=== PATIENT | male | born 1975 | race Caucasian/White ===

== ENCOUNTER 2024-09-07 22:25 | Inpatient (IN) | payer OTHER ==
[2024-09-07] MEDS ORDERED: ACETAMINOPHEN INJECTION 100 ML ONE (23:49)
[2024-09-07] MEDS ORDERED: FAMOTIDINE 20 MG/50 ML IVPB 20 MG/50 ML MG IVPB ONE (23:50)
[2024-09-07] MEDS ORDERED: ONDANSETRON 4 MG/2 ML VIAL ONE (23:50)
[2024-09-08] MEDS: ONDANSETRON 4 MG/2 ML VIAL IVPUSH ONE (00:11)
[2024-09-08] MEDS: ACETAMINOPHEN 1000 MG/100 ML BAG IVPB ONE (00:11)
[2024-09-08] MEDS: FAMOTIDINE 20 MG/50 ML IVPB 20 MG/50 ML MG IVPB ONE (00:11)
[2024-09-08 00:19] LABS: BASO % 0.4 % (0-2.0); EOS % 0.1 % (0-4.5); HEMATOCRIT 44.2 % (35.4-49); HEMOGLOBIN 14.8 GM/dL (11.7-16.9); LYMPH % 10.9 % (8-40); MCHC 33.6 g/dl (32.0-35.9); MEAN CELL VOLUME 89.4 fl (80-96); MEAN PLT VOLUME 7.8 fl (7.5-11.1); MONO % 10.7 % (3.8-10.2); NEUT % 77.9 % (42.8-82.8); PLATELET COUNT 217 10^3/uL (134-434); RBC 4.95 M/mm3 (4.00-5.60); RDW 13.1 % (11.9-15.9); WHITE BLOOD COUNT 6.2 K/mm3 (4.0-10.0)
[2024-09-08 00:55] LABS: POTASSIUM 4.5 mmol/L (3.5-5.1)
[2024-09-08 00:57] LABS: CALCIUM 8.8 mg/dL (8.5-10.1)
[2024-09-08 00:58] LABS: ALBUMIN 3.5 g/dl (3.4-5.0); BLOOD UREA NITROGEN 11.9 mg/dL (7-18)
[2024-09-08 01:01] LABS: CREATININE 0.9 mg/dL (0.55-1.3)
[2024-09-08 01:02] LABS: BILIRUBIN,TOTAL 1.2 mg/dL (0.2-1); TOT PROT 6.7 g/dl (6.4-8.2)
[2024-09-08] MEDS ORDERED: morphine SULFATE 4 MG/ML VIAL ONE (02:54)
[2024-09-08] MEDS ORDERED: PIPERACILLIN/TAZOB 4.5 GM 4.5 GM/100 ML BAG IVPB ONE (02:55)
[2024-09-08] MEDS: morphine CARPU-JECT 4 MG/1 ML DISP.SYRIN IVPUSH ONE (03:05)
[2024-09-08] MEDS: PIPERACILLIN/TAZOB 4.5 GM 4.5 GM in DEXTROSE 5%-WATER 100 ML IVPB ONE (03:05)
[2024-09-08] MEDS: SODIUM CHLORIDE 0.9% 500 ML INFUS.BAG IV ONE ×2 (03:05→03:20)
[2024-09-08] MEDS: PIPERACILLIN/TAZOB 3.375 GM 3.375 GM in DEXTROSE 5%-WATER - 50 ML IVPB SCH ×4 (03:39→17:41)
[2024-09-08] MEDS ORDERED: PANTOPRAZOLE SODIUM 40 MG VIAL ONE (03:58)
[2024-09-08 04:00] LABS: INR 1.14 (0.83-1.09); PROTHROMBIN TIME (PATIENT) 12.8 SEC (9.7-13.0)
[2024-09-08] MEDS: LACTATED RINGERS SOLUTION 1,000 ML/1,000 ML INFUS.BAG IV STA (04:00)
[2024-09-08] MEDS: PANTOPRAZOLE SODIUM 40 MG VIAL IVPUSH ONE (04:00)
[2024-09-08 04:02] LABS: ACTIVATED PTT 25.8 SECONDS (25.2-36.5)
[2024-09-08] MEDS ORDERED: LACTATED RINGERS SOLUTION 1,000 ML/1,000 ML INFUS.BAG IV STA (04:15)
[2024-09-08] MEDS ORDERED: SUCCINYLCHOLINE CHLORIDE 200 MG/10 ML SYRINGE ONE (04:32)
[2024-09-08] MEDS ORDERED: PROPOFOL 20 ML ONE ×2 (04:32→05:20)
[2024-09-08] MEDS ORDERED: HYDROmorphone HCl 2 MG/ML VIAL ONE (04:33)
[2024-09-08 04:39] LABS: EPI CELLS 2 /uL (0-25.1); HYALINE CASTS 0 /uL (0-3.1); URINE APPEARANCE CLEAR; URINE BACTERIA 1 /uL (0-1359); URINE BILIRUBIN NEGATIVE (NEGATIVE); URINE COLOR YELLOW; URINE GLUCOSE (UA) NEGATIVE (NEGATIVE); URINE KETONE NEGATIVE (NEGATIVE); URINE LEUK ESTERASE NEGATIVE (NEGATIVE); URINE NITRITE NEGATIVE (NEGATIVE); URINE PROTEIN NEGATIVE (NEGATIVE); URINE RBC 12 /uL (0-23.9); URINE WBC 3 /uL (0-25.8)
[2024-09-08] MEDS ORDERED: INDOCYANINE GREEN 25 MG/10 ML VIAL IVPUSH ONE (05:05)
[2024-09-08] MEDS ORDERED: CEFOXITIN SODIUM/DEXTROSE,ISO 2 GM/50 ML BAG ONE (05:05)
[2024-09-08] MEDS ORDERED: BUPIVACAINE HCL/PF 0.25% (2.5MG/ML) 10 ML VIAL ONE (05:05)
[2024-09-08] MEDS ORDERED: HEPARIN NA (PORCINE) 5,000 UNITS/ML 1ML VIAL ONE (05:05)
[2024-09-08 05:08] LABS: COCAINE, UR NEGATIVE (NEGATIVE); URINE BARBITURATES NEGATIVE (NEGATIVE); URINE BENZODIAZEPINES NEGATIVE (NEGATIVE)
[2024-09-08 05:09] LABS: METHADONE, UR NEGATIVE (NEGATIVE); PHENCYCLIDINE,URINE NEGATIVE (NEGATIVE); URINE AMPHETAMINES NEGATIVE (NEGATIVE)
[2024-09-08] MEDS ORDERED: ROCURONIUM BROMIDE 50 MG/5 ML SYRINGE ONE (05:21)
[2024-09-08 05:24] LABS: OPIATES, URI POSITIVE (NEGATIVE)
[2024-09-08] MEDS ORDERED: DEXAMETHASONE SOD PHOSPHATE 4 MG/1 ML VIAL ONE (05:25)
[2024-09-08] MEDS ORDERED: ONDANSETRON 4 MG/2 ML VIAL ONE ×2 (05:25→06:30)
[2024-09-08] MEDS ORDERED: SEVOFLURANE 250 ML BTL ONE (05:30)
[2024-09-08] MEDS: BUPIVACAINE HCL/PF 0.25% (2.5MG/ML) 10 ML VIAL IJ ONE (05:33)
[2024-09-08] MEDS ORDERED: ACETAMINOPHEN INJECTION 100 ML ONE (06:15)
[2024-09-08] MEDS ORDERED: KETOROLAC TROMETHAMINE 30 MG/1 ML VIAL ONE (06:20)
[2024-09-08] MEDS ORDERED: NEOSTIGMINE METHYLSULFATE 0.5 MG/1 ML - 10 ML MDV ONE (06:30)
[2024-09-08] MEDS ORDERED: GLYCOPYRROLATE 0.2 MG/1 ML VIAL ONE (06:30)
[2024-09-08] MEDS ORDERED: ONDANSETRON 4 MG/2 ML VIAL IVPUSH PRN (07:24)
[2024-09-08] MEDS ORDERED: LACTATED RINGERS SOLUTION 1,000 ML IV SCH (07:30)
[2024-09-08] MEDS: LACTATED RINGERS SOLUTION 1,000 ML/1,000 ML INFUS.BAG IV SCH (08:00)
[2024-09-08 09:33] LABS: POTASSIUM 4.6 mmol/L (3.5-5.1)
[2024-09-08 09:34] LABS: HEMATOCRIT 38.2 % (35.4-49); HEMOGLOBIN 12.8 GM/dL (11.7-16.9); MCH 30.1 pg (25.7-33.7); MCHC 33.4 g/dl (32.0-35.9); MEAN CELL VOLUME 90.2 fl (80-96); MEAN PLT VOLUME 7.8 fl (7.5-11.1); PLATELET COUNT 175 10^3/uL (134-434); RBC 4.24 M/mm3 (4.00-5.60); RDW 13.2 % (11.9-15.9); WHITE BLOOD COUNT 5.6 K/mm3 (4.0-10.0)
[2024-09-08 09:35] LABS: CALCIUM 7.5 mg/dL (8.5-10.1); MAGNESIUM 1.1 mg/dL (1.8-2.4)
[2024-09-08 09:38] LABS: CREATININE 0.6 mg/dL (0.55-1.3)
[2024-09-08 09:39] LABS: PHOSPHOROUS 3.1 mg/dL (2.5-4.9)
[2024-09-08 09:40] LABS: BILIRUBIN,TOTAL 1.3 mg/dL (0.2-1)
[2024-09-08] MEDS: PANTOPRAZOLE SODIUM 40 MG VIAL IVPUSH SCH (11:18)
[2024-09-08] MEDS: MAGNESIUM SULFATE IN WATER 2 GM/50 ML IVPB IVPB ONE (11:58)
[2024-09-08 12:41] LABS: TOT PROT 4.2 g/dl (6.4-8.2)
[2024-09-08] MEDS ORDERED: CEFAZOLIN 2 GM/D5W 2 GM/50 ML ML IVPB SCH (13:00)
[2024-09-08] MEDS: ACETAMINOPHEN 1000 MG/100 ML BAG IVPB PRN (15:21)
[2024-09-08 16:04] VITALS: BMI 20.4
[2024-09-09] MEDS ORDERED: PIPERACILLIN/TAZOB 3.375 GM 3.375 GM in DEXTROSE 5%-WATER - 50 ML IVPB SCH (03:00)
[2024-09-09] MEDS: PIPERACILLIN/TAZOB 3.375 GM 3.375 GM/50 ML BAG IVPB SCH (03:05)
[2024-09-09 09:45] LABS: BASO % 0.2 % (0-2.0); EOS % 0.2 % (0-4.5); HEMATOCRIT 36.2 % (35.4-49); HEMOGLOBIN 12.1 GM/dL (11.7-16.9); LYMPH % 15.5 % (8-40); MCH 30.1 pg (25.7-33.7); MCHC 33.3 g/dl (32.0-35.9); MEAN CELL VOLUME 90.5 fl (80-96); NEUT % 76.1 % (42.8-82.8); PLATELET COUNT 167 10^3/uL (134-434); RDW 13.5 % (11.9-15.9); WHITE BLOOD COUNT 8.2 K/mm3 (4.0-10.0)
[2024-09-09 10:03] LABS: POTASSIUM 4.1 mmol/L (3.5-5.1)
[2024-09-09 10:13] LABS: CALCIUM 8.5 mg/dL (8.5-10.1)
[2024-09-09 10:14] LABS: ALBUMIN 2.5 g/dl (3.4-5.0); BLOOD UREA NITROGEN 14.2 mg/dL (7-18); MAGNESIUM 2.4 mg/dL (1.8-2.4)
[2024-09-09 10:17] LABS: CREATININE 0.9 mg/dL (0.55-1.3)
[2024-09-09 10:18] LABS: BILIRUBIN,TOTAL 1.2 mg/dL (0.2-1); TOT PROT 5.3 g/dl (6.4-8.2)
[2024-09-09] MEDS: PIPERACILLIN/TAZOB 3.375 GM 50 ML IVPB SCH (12:59)
[2024-09-09] MEDS ORDERED: morphine CARPU-JECT 4 MG/1 ML DISP.SYRIN IVPUSH PRN (15:26)
[2024-09-09] MEDS: morphine SULFATE 4 MG/ML VIAL IVPUSH PRN (15:42)
[2024-09-09] MEDS: DOCUSATE SODIUM 100 MG CAPSULE (FP) PO SCH (22:05)
[2024-09-10] MEDS: oxyCODONE HCL 5 MG TABLET PO PRN ×2 (01:20→09:09)
[2024-09-10 09:45] LABS: BASO % 0.2 % (0-2.0); EOS % 1.2 % (0-4.5); HEMATOCRIT 37.4 % (35.4-49); HEMOGLOBIN 12.6 GM/dL (11.7-16.9); LYMPH % 15.6 % (8-40); MCH 30.4 pg (25.7-33.7); MCHC 33.7 g/dl (32.0-35.9); MEAN CELL VOLUME 90.3 fl (80-96); MEAN PLT VOLUME 8.3 fl (7.5-11.1); MONO % 9.7 % (3.8-10.2); NEUT % 73.3 % (42.8-82.8); PLATELET COUNT 170 10^3/uL (134-434); RBC 4.14 M/mm3 (4.00-5.60); RDW 13.7 % (11.9-15.9); WHITE BLOOD COUNT 10.4 K/mm3 (4.0-10.0)
[2024-09-10 10:30] LABS: POTASSIUM 3.9 mmol/L (3.5-5.1)
[2024-09-10 10:42] LABS: ALBUMIN 2.5 g/dl (3.4-5.0); BLOOD UREA NITROGEN 12.5 mg/dL (7-18); CALCIUM 8.7 mg/dL (8.5-10.1)
[2024-09-10 10:43] LABS: MAGNESIUM 2.1 mg/dL (1.8-2.4)
[2024-09-10 10:46] LABS: BILIRUBIN,TOTAL 1.4 mg/dL (0.2-1); TOT PROT 5.6 g/dl (6.4-8.2)
[2024-09-11] MEDS: SIMETHICONE 80 MG TAB.CHEW (FP) PO PRN (06:39)
[2024-09-11] MEDS ORDERED: oxyCODONE HCL 5 MG TABLET PO PRN (08:59)
[2024-09-11] MEDS ORDERED: ACETAMINOPHEN 325 MG TABLET (FP) PO PRN (09:00)
[2024-09-11 09:46] LABS: BASO % 0.5 % (0-2.0); EOS % 1.3 % (0-4.5); HEMOGLOBIN 13.3 GM/dL (11.7-16.9); LYMPH % 13.4 % (8-40); MCH 30.1 pg (25.7-33.7); MCHC 33.2 g/dl (32.0-35.9); MEAN CELL VOLUME 90.7 fl (80-96); MEAN PLT VOLUME 8.1 fl (7.5-11.1); MONO % 8.9 % (3.8-10.2); NEUT % 75.9 % (42.8-82.8); PLATELET COUNT 215 10^3/uL (134-434); RBC 4.41 M/mm3 (4.00-5.60); RDW 13.4 % (11.9-15.9); WHITE BLOOD COUNT 9.2 K/mm3 (4.0-10.0)
[2024-09-11 10:10] LABS: POTASSIUM 3.9 mmol/L (3.5-5.1)
[2024-09-11 10:16] LABS: CALCIUM 8.8 mg/dL (8.5-10.1)
[2024-09-11 10:17] LABS: ALBUMIN 2.4 g/dl (3.4-5.0); BLOOD UREA NITROGEN 11.1 mg/dL (7-18); MAGNESIUM 2.1 mg/dL (1.8-2.4)
[2024-09-11 10:21] LABS: CREATININE 0.9 mg/dL (0.55-1.3)
[2024-09-11 10:22] LABS: BILIRUBIN,TOTAL 1.6 mg/dL (0.2-1); TOT PROT 5.7 g/dl (6.4-8.2)
[2024-09-11] MEDS: ACETAMINOPHEN 1000 MG/100 ML BAG IVPB PRN (10:33)
[2024-09-11] MEDS: ONDANSETRON 4 MG/2 ML VIAL IVPUSH PRN (19:32)
[2024-09-11] MEDS: DEXTROSE 5%-NORMAL SALINE 1,000 ML IV SCH (21:59)
[2024-09-12 09:42] LABS: BASO % 0.3 % (0-2.0); EOS % 1.8 % (0-4.5); HEMATOCRIT 37.9 % (35.4-49); LYMPH % 16.6 % (8-40); MCH 30.7 pg (25.7-33.7); MCHC 34.3 g/dl (32.0-35.9); MEAN CELL VOLUME 89.5 fl (80-96); MONO % 10.6 % (3.8-10.2); NEUT % 70.7 % (42.8-82.8); PLATELET COUNT 215 10^3/uL (134-434); RBC 4.24 M/mm3 (4.00-5.60); RDW 13.4 % (11.9-15.9); WHITE BLOOD COUNT 7.8 K/mm3 (4.0-10.0)
[2024-09-12 10:04] LABS: POTASSIUM 3.7 mmol/L (3.5-5.1)
[2024-09-12] MEDS: DEXTROSE 5%-NORMAL SALINE 1,000 ML IV SCH (10:22)
[2024-09-12 11:07] LABS: CALCIUM 8.6 mg/dL (8.5-10.1)
[2024-09-12 11:08] LABS: BLOOD UREA NITROGEN 11.8 mg/dL (7-18)
[2024-09-12 11:11] LABS: CREATININE 0.8 mg/dL (0.55-1.3)
[2024-09-14 10:09] LABS: BASO % 0.5 % (0-2.0); EOS % 2.1 % (0-4.5); HEMATOCRIT 36.2 % (35.4-49); HEMOGLOBIN 12.3 GM/dL (11.7-16.9); LYMPH % 21.7 % (8-40); MCH 30.4 pg (25.7-33.7); MEAN CELL VOLUME 89.5 fl (80-96); MEAN PLT VOLUME 7.8 fl (7.5-11.1); MONO % 14.5 % (3.8-10.2); NEUT % 61.2 % (42.8-82.8); PLATELET COUNT 224 10^3/uL (134-434); RBC 4.04 M/mm3 (4.00-5.60); RDW 13.5 % (11.9-15.9); WHITE BLOOD COUNT 6.9 K/mm3 (4.0-10.0)
[2024-09-14 10:30] LABS: POTASSIUM 3.4 mmol/L (3.5-5.1)
[2024-09-14 10:47] LABS: ALBUMIN 2.4 g/dl (3.4-5.0); BLOOD UREA NITROGEN 6.2 mg/dL (7-18); CALCIUM 8.2 mg/dL (8.5-10.1); MAGNESIUM 2.2 mg/dL (1.8-2.4)
[2024-09-14 10:50] LABS: PHOSPHOROUS 3.3 mg/dL (2.5-4.9)
[2024-09-14 10:51] LABS: CREATININE 0.9 mg/dL (0.55-1.3)
[2024-09-14 10:52] LABS: BILIRUBIN,TOTAL 0.6 mg/dL (0.2-1); TOT PROT 5.6 g/dl (6.4-8.2)
[2024-09-14 15:31] VITALS: BP 121/77; PULSE 58; RESP 18; TEMP 97.5
== END 2024-09-14 16:09 | disposition home or self-care (01) | DRG 221 ==
LOC: JER 22:25 → JERBED 09-08 02:57 → J8W 09-08 13:08
PROVIDERS: ADMIT Internal Medicine
PROC: 3E1M48Z Irrigation of Peritoneal Cavity using Irrigating Substance, Percutaneous Endoscopic Approach (ICD-10-PCS; 2024-09-08)
PROC: 0DNW0ZZ Release Peritoneum, Open Approach (ICD-10-PCS; 2024-09-08)
PROC: 0DT80ZZ Resection of Small Intestine, Open Approach (ICD-10-PCS; principal; 2024-09-08 04:07)
DX: Q43.0 Meckel's diverticulum (displaced) (hypertrophic) (principal); K65.8 Other peritonitis; K66.8 Other specified disorders of peritoneum; K56.7 Ileus, unspecified; M10.9 Gout, unspecified; R11.2 Nausea with vomiting, unspecified; K91.89 Other postprocedural complications and disorders of digestive system; K63.1 Perforation of intestine (nontraumatic); Y83.8 Other surgical procedures as the cause of abnormal reaction of the patient, or of later complication, without mention of misadventure at the time of the procedure; F10.90 Alcohol use, unspecified, uncomplicated; G89.29 Other chronic pain; B96.20 Unspecified Escherichia coli [E. coli] as the cause of diseases classified elsewhere; B96.4 Proteus (mirabilis) (morganii) as the cause of diseases classified elsewhere; B96.89 Other specified bacterial agents as the cause of diseases classified elsewhere; K66.0 Peritoneal adhesions (postprocedural) (postinfection); E80.6 Other disorders of bilirubin metabolism; R50.82 Postprocedural fever; D72.829 Elevated white blood cell count, unspecified
CPT/HCPCS: 36415; 74018-TC-FY; 74019-TC-FY; 74177-TC; 76705-TC; 80048; 80053; 80307; 81003; 83690; 83735; 84100; 85025; 85027; 85610; 85730; 86140; 86850; 86900; 86901; 87070; 87075; 87086; 87186; 87205; 88307-TC; 93005; 93010; 94010; 94760; 99285-25; J0131; J1644; Q9967